=== PATIENT | male | born 1970 | race American Indian/Alaskan Native ===

== ENCOUNTER 2018-10-20 00:36 | Emergency (ER) | payer BC ==
[2018-10-20 00:52] VITALS: BP 147/82; PULSE 96; RESP 18; TEMP 99.1; BMI 29.8
[2018-10-20 01:31] VITALS: O2SAT 99
--- NOTE | 2018-10-20 03:10 | ED PDOC ---
Arrival/HPI - General Chief Complaint: Flu-like Symptoms Time Seen by Provider: 10/20/18 00:48 Historian: Patient - History of Present Illness Narrative History of Present Illness (Text): 10/20/18 03:15 48 year old male, with no significant past medical history, presents to the emergency department with flu-like symptoms, since yesterday. Patient states he has a subjective fever. Patient also informs having body aches and a dry cough. Patient denies any recent travel or sick contact. Patient states he did not take anything for his symptoms. Patient informs he did not get his flu shot. Patient denies any chest pain, shortness of breath, cough, abdominal pain, nausea, vomiting, diarrhea, or any other complaint.. Time/Duration: Prior to Arrival Symptom Onset: Gradual Symptom Course: Unchanged Quality: Aching Context: Home Past Medical History - Provider Review Nursing Documentation Reviewed: Yes - Psychiatric Hx Substance Use: No - Anesthesia Hx Anesthesia Reactions: No Family/Social History - Physician Review Nursing Documentation Reviewed: Yes Family/Social History: No Known Family HX Smoking Status: Unknown If Ever Smoked Hx Alcohol Use: No Hx Substance Use: No Allergies/Home Meds Allergies/Adverse Reactions: Allergies malaria med Allergy (Uncoded 10/20/18 00:52) RASH Review of Systems - Physician Review All systems were reviewed & negative as marked: Yes - Review of Systems Constitutional: Fevers, Other (generalized body aches) Respiratory: absent: SOB, Cough Cardiovascular: absent: Chest Pain Gastrointestinal: absent: Abdominal Pain, Diarrhea, Nausea, Vomiting Physical Exam Vital Signs Reviewed: Yes Vital Signs Temp Pulse Resp BP Pulse Ox 10/20/18 01:31 18 99 10/20/18 01:30 99 10/20/18 00:51 99.1 F 96 H 18 147/82 98 Temperature: Afebrile Blood Pressure: Normal Pulse: Regular Respiratory Rate: Normal Appearance: Positive for: Well-Appearing, Non-Toxic, Comfortable Pain Distress: None Mental Status: Positive for: Alert and Oriented X 3 - Systems Exam Head: Present: Atraumatic, Normocephalic Pupils: Present: PERRL Extroacular Muscles: Present: EOMI Conjunctiva: Present: Normal Mouth: Present: Moist Mucous Membranes Neck: Present: Normal Range of Motion Respiratory/Chest: Present: Clear to Auscultation, Good Air Exchange. No: Respiratory Distress, Accessory Muscle Use Cardiovascular: Present: Regular Rate and Rhythm, Normal S1, S2. No: Murmurs Abdomen: No: Tenderness, Distention, Peritoneal Signs Back: Present: Normal Inspection Upper Extremity: Present: Normal Inspection. No: Cyanosis, Edema Lower Extremity: Present: Normal Inspection. No: Edema Neurological: Present: GCS=15, CN II-XII Intact, Speech Normal Skin: Present: Warm, Dry, Normal Color. No: Rashes Psychiatric: Present: Alert, Oriented x 3, Normal Insight, Normal Concentration - Scribe Statement The provider has reviewed the documentation as recorded by the Scribe Cayetano Osborn Provider Scribe Attestation: All medical record entries made by the Scribe were at my direction and personally dictated by me. I have reviewed the chart and agree that the record accurately reflects my personal performance of the history, physical exam, medical decision making, and the department course for this patient. I have also personally directed, reviewed, and agree with the discharge instructions and disposition. Disposition/Present on Arrival - Present on Arrival Any Indicators Present on Arrival: No History of DVT/PE: No History of Uncontrolled Diabetes: No Urinary Catheter: No History of Decub. Ulcer: No History Surgical Site Infection Following: None - Disposition Have Diagnosis and Disposition been Completed?: Yes Diagnosis: Influenza-like illness Disposition: HOME/ ROUTINE Disposition Time: 01:20 Condition: GOOD Discharge Instructions (ExitCare): Viral Syndrome (DC) Additional Instructions: LY LEE, thank you for letting us take care of you today. The emergency medical care you received today was directed at your acute symptoms. If you were prescribed any medication, please fill it and take as directed. It may take several days for your symptoms to resolve. Return to the Emergency Department if your symptoms worsen, do not improve, or if you have any other problems. Please contact your doctor or call one of the physicians/clinics you have been referred to that are listed on the Patient Visit Information form that is included in your discharge packet. Bring any paperwork you were given at discharge with you along with any medications you are taking to your follow up visit. Our treatment cannot replace ongoing medical care by a primary care provider outside of the emergency department. Thank you for allowing the [facility] team to be part of your care today. Drink plenty of fluids to maintain hydration. Follow up with your primary care doctor in 2-3 days for re-evaluation and further management. Prescriptions: Guaifenesin [Cough Syrup] 100 mg PO Q6 PRN #1 bottle PRN Reason: Cough Ibuprofen [Motrin] 600 mg PO Q6 PRN #20 tab PRN Reason: Pain, Moderate (4-7) Oseltamivir Phosphate [Tamiflu] 75 mg PO BID #10 capsule Referrals: Ugo Longoria DO [Primary Care Provider] - Follow up with primary Forms: [email or web address] [facility] (Fijian), WORK NOTE
== END 2018-10-20 01:31 | disposition home or self-care (01) ==
LOC: ED 00:36
DX: J11.1 Influenza due to unidentified influenza virus with other respiratory manifestations (principal)

== ENCOUNTER 2018-11-19 09:16 | Outpatient (CLI) | payer BC | END 2018-11-19 09:17 | disposition home or self-care (01) | LOC: RAD 09:16 | DX: B18.1 Chronic viral hepatitis B without delta-agent (principal) ==

== ENCOUNTER 2018-12-15 23:15 | Emergency (ER) | payer BC ==
[2018-12-15 23:16] VITALS: BMI 29.8
--- NOTE | 2018-12-16 00:43 | ED PDOC ---
Arrival/HPI - General Historian: Patient - History of Present Illness Narrative History of Present Illness (Text): 12/16/18 00:36 48 y/o male with PMH of recent left shoulder surgery who presents to the ED with 6 days of constipation and abdominal discomfort. Patient reports no having a bowel movement since his shoulder surgery on 12/10 but he is passing gas. He denied nausea, vomiting, hematemesis, hematochezia, melena, fever, chills. He reports taking oxycodone Q6H for pain and not taking any stool softner with it. He reports poor oral intake as well. Patient denied CP, cough, SOB, headache, dizziness, urinary symptoms, muscle weakness, loss of sensation. Time/Duration: < week Symptom Onset: Gradual Symptom Course: Worsening Quality: Fullness Context: Home <Jose Lima - Last Filed: 12/16/18 01:46> <David Alicea - Last Filed: 12/16/18 03:50> - General Chief Complaint: GI Problem Past Medical History - Provider Review Nursing Documentation Reviewed: Yes - Infectious Disease Hx of Infectious Diseases: None - Pulmonary Hx Sleep Apnea: Yes - Psychiatric Hx Substance Use: No - Surgical History Other/Comment: left shoulder surgery - Anesthesia Hx Anesthesia Reactions: No <Jose Lima - Last Filed: 12/16/18 01:46> Family/Social History - Physician Review Nursing Documentation Reviewed: Yes Family/Social History: Unknown Family HX Smoking Status: Unknown If Ever Smoked Hx Alcohol Use: No Hx Substance Use: No <Jose Lima - Last Filed: 12/16/18 01:46> Allergies/Home Meds <Jose Lima - Last Filed: 12/16/18 01:46> <David Alicea - Last Filed: 12/16/18 03:50> Allergies/Adverse Reactions: Allergies malaria med Allergy (Uncoded 12/16/18 00:05) RASH Review of Systems - Physician Review All systems were reviewed & negative as marked: Yes - Review of Systems Constitutional: absent: Fatigue, Weight Change, Fevers, Night Sweats Eyes: absent: Vision Changes ENT: absent: Hearing Changes, Sore Throat Respiratory: absent: SOB, Cough, Sputum, Wheezing Cardiovascular: absent: Chest Pain, Palpitations, Edema Gastrointestinal: Constipation, Other (bloating). absent: Diarrhea, Nausea, Vomiting, Hematochezia, Hematemesis, Anorexia Genitourinary Male: absent: Dysuria, Frequency, Hematuria Musculoskeletal: Arthralgias (left shoulder pain). absent: Back Pain, Neck Pain Skin: absent: Rash, Pruritis Neurological: absent: Headache, Dizziness, Focal Weakness, Speech Changes Endocrine: absent: Polyuria, Polydipsia Hemo/Lymphatic: absent: Adenopathy Psychiatric: absent: Anxiety, Depression <Jose Lima - Last Filed: 12/16/18 01:46> Physical Exam Temperature: Afebrile Blood Pressure: Normal Pulse: Regular Respiratory Rate: Normal Appearance: Positive for: Well-Appearing, Non-Toxic, Comfortable Pain Distress: Mild Mental Status: Positive for: Alert and Oriented X 3 - Systems Exam Head: Present: Atraumatic, Normocephalic Pupils: Present: PERRL Extroacular Muscles: Present: EOMI Conjunctiva: Present: Normal Neck: Present: Normal Range of Motion Respiratory/Chest: Present: Clear to Auscultation <Jose Lima - Last Filed: 12/16/18 01:46> Medical Decision Making ED Course and Treatment: 12/16/18 00:46 Lactulose and fleet enema given 12/16/18 01:40 Patient had a bowel movement after meds Re-evaluation Time: 01:41 Reassessment Condition: Re-examined, Improved - Medication Orders Current Medication Orders: Lactulose (Enulose) 20 gm PO ONCE STA Stop: 12/16/18 00:35 Sodium Phosphate (Fleet Enema) 135 ml RC STAT STA Stop: 12/16/18 00:35 <Jose Lima - Last Filed: 12/16/18 01:46> ED Course and Treatment: Impression: Pt seen and evaluated with medical device sales representative. Aware and agree with HPI, clinical findings, plan, and management. Pt presented for constipation and abdominal discomfort. Plan: -- Fleet Enema -- Lactulose -- Reassess and disposition - Medication Orders Current Medication Orders: Discontinued Medications Lactulose (Enulose) 20 gm PO ONCE STA Stop: 12/16/18 00:35 Last Admin: 12/16/18 01:03 Dose: 20 gm Sodium Phosphate (Fleet Enema) 135 ml RC STAT STA Stop: 12/16/18 00:35 Last Admin: 12/16/18 01:03 Dose: 135 ml <David Alicea - Last Filed: 12/16/18 03:50> - PA / LINING SEWER / Resident Statement ABBY has reviewed & agrees with the documentation as recorded. / has examined the patient and agrees with the treatment plan. <David Alicea - Last Filed: 12/16/18 03:50> Disposition/Present on Arrival - Present on Arrival Any Indicators Present on Arrival: No History of DVT/PE: No History of Uncontrolled Diabetes: No Urinary Catheter: No History of Decub. Ulcer: No History Surgical Site Infection Following: None - Disposition Have Diagnosis and Disposition been Completed?: Yes Disposition Time: 01:44 Patient Plan: Discharge <Jose Lima - Last Filed: 12/16/18 01:46> <David Alicea - Last Filed: 12/16/18 03:50> - Disposition Diagnosis: Constipation due to opioid therapy Disposition: HOME/ ROUTINE Condition: GOOD Discharge Instructions (ExitCare): Constipation, Adult (DC) Additional Instructions: Take stool softner while taking oxycodone increase fiber diet, drink plenty of fluids follow up with your PMD Forms: [employer] [facility] (N[place]ibian)
[2018-12-16 09:24] VITALS: BP 154/92; PULSE 85; RESP 18; TEMP 98.4; O2SAT 100
== END 2018-12-16 01:46 | disposition home or self-care (01) ==
LOC: ED 23:15
DX: K59.03 Drug induced constipation (principal); T40.2X5A Adverse effect of other opioids, initial encounter; Y92.89 Other specified places as the place of occurrence of the external cause

== ENCOUNTER 2019-01-08 07:58 | Day surgery (SDC) | payer BC ==
[2019-01-08] MEDS ORDERED: Propofol 10 mg/ml Inj (20 ML) ONE (08:32)
[2019-01-08] MEDS ORDERED: Sodium Chloride 0.9% 1,000 ML IV SCH (09:00)
[2019-01-08 09:48] VITALS: BP 138/75; PULSE 78; RESP 19; TEMP 97.8; O2SAT 98
== END 2019-01-08 10:19 | disposition home or self-care (01) ==
LOC: ENDO 07:58
PROVIDERS: ATTEND Internal Medicine Gastroenterology
DX: Z12.11 Encounter for screening for malignant neoplasm of colon (principal); K64.1 Second degree hemorrhoids